=== PATIENT | female | born 1970 | race Caucasian/White ===

== ENCOUNTER 2017-08-07 02:22 | Emergency (ER) | payer OTHER, MEDICARE ==
[2017-08-07] MEDS ORDERED: HYDROcodone/Acetaminophen 10/325 mg Tablet ONE (02:51)
[2017-08-07] MEDS ORDERED: HyperTET 250 UNITS/ML 1 ML SYRINGE ONE (03:12)
[2017-08-07] MEDS ORDERED: Adacel (T-DAP) 0.5 ML VIAL ONE (03:12)
[2017-08-07] MEDS ORDERED: Triple Antibiotic Oint 1 GM Packet ONE (04:11)
--- NOTE | 2017-08-07 10:13 | RAD ---
RIGHT HUMERUS 2 VIEWS: HISTORY: A 47-year-old female with injury to right upper extremity after a fall out of a golf cart. FINDINGS: There is evidence for subcutaneous emphysema in the region of the right elbow. No evidence for acute humeral fracture or dislocation. The visualized right shoulder is intact. IMPRESSION: No humeral fracture or dislocation. Elbow subcutaneous emphysema. POS: [facility]
--- NOTE | 2017-08-07 10:18 | RAD ---
RIGHT ELBOW 4 VIEWS: HISTORY: A 47-year-old female with injury to right elbow after falling out of a golf cart. FINDINGS: There is some posterior subcutaneous emphysema with some overlying bandage material or other overlyin g artifact somewhat obscuring the soft tissues. No fracture, dislocation, or other acute process of the elbow. IMPRESSION: No elbow fracture or dislocation. Subcutaneous emphysema, particularly over the region of the ulna o lecranon. POS: [facility]
--- NOTE | 2017-08-07 10:20 | RAD ---
RIGHT FOREARM 2 VIEWS: HISTORY: A 47-year-old female with right forearm injury after falling out of a golf cart. IMPRESSION: No fracture, dislocation, or other significant acute osseous abnormality. POS: [facility]
== END 2017-08-07 04:35 | disposition home or self-care (01) ==
LOC: NAV ERS 02:22
DX: S41.111A Laceration without foreign body of right upper arm, initial encounter (principal); S50.01XA Contusion of right elbow, initial encounter; Z79.899 Other long term (current) drug therapy; W17.89XA Other fall from one level to another, initial encounter
CPT/HCPCS: 12001; 90471; 90715; J1670